=== PATIENT | male | born 2000 | race Hispanic/Latino ===

== ENCOUNTER 2022-10-20 16:11 | Emergency (ER) | payer BC, SELFPAY ==
[2022-10-20 16:15] VITALS: BP 154/81; PULSE 98; RESP 20; TEMP 37.4; O2SAT 100
--- NOTE | 2022-10-20 16:50 | ECG_ITS ---
Measurements Intervals [place] Rate: 77 P: 50 MO: 160 QRS: 56 QRSD: 97 T: 29 QT: 378 QTc: 429 Interpretive Statements SINUS RHYTHM NORMAL ECG NO PREVIOUS ECG AVAILABLE FOR COMPARISON Electronically Signed On 10-22-2022 9:08:34 CDT by Diego Vaughn M.D.
--- NOTE | 2022-10-20 16:57 | ED.DIZZY ---
HPI - Dizziness General Chief Complaint: Dizziness Stated Complaint: Dizziness Time Seen by Provider: 10/20/22 16:44 Source: patient and RN notes reviewed Mode of arrival: ambulatory Limitations: no limitations History of Present Illness HPI Narrative: Patient presents today complaining of dizziness, intermittent heart racing shortness of breath, and tingling in the bilateral hands. Symptoms began while he was working out at the gym this afternoon prior to arrival. States symptoms wax and wane and are not currently present. States he has had symptoms similar to this in the past. He did consume a preworkout drink prior to going to the gym. Denies chest pain, abdominal pain, vision changes. Patient states he believes he is having a panic attack, but has not had diagnosis of panic attack or anxiety in the past. Related Data Allergies Allergy/AdvReac Type Severity Reaction Status Date / Time No Known Allergies Allergy Verified 10/20/22 16:14 Review of Systems Review of Systems: CONSTITUTIONAL: Denies body aches, fever, chills, or sweats. EYES: Denies visual changes, redness, or discharge. ENT: Denies rhinorrhea, congestion, sore throat, or otalgia. CARDIOVASCULAR: Denies chest pain, palpitations, or edema.+ heart racing RESPIRATORY: Denies cough.+ shortness of breath GASTROINTESTINAL: Denies abdominal pain, nausea, vomiting, or diarrhea. GENITOURINARY: Denies dysuria or hematuria. SKIN: Denies rash, itching, or wounds. MUSCULOSKELETAL: Denies back pain, joint pain, or myalgia. NEUROLOGIC: Denies headache, numbness, or weakness.+ tingling in the hands, dizziness PSYCH: Denies depression or anxiety. PMFSH Comments At time of signature, I have reviewed and agree with nursing past medical, surgical, social and family history unless otherwise noted. Please see nursing chart for further information. There is no relevant family history pertinent to the presenting complaint Exam Narrative: GENERAL: Well-appearing, well-nourished, and in no acute distress. HEAD: Normocephalic, atraumatic. EYES: EOMI. PERRL. No redness or drainage. Conjunctivae normal. ENT: Mucous membranes pink and moist. Nares clear. No rhinorrhea. TMs normal bilaterally. Throat normal. Uvula midline. NECK: Normal AROM. Supple. No lymphadenopathy. CHEST: No respiratory distress. Clear to auscultation. HEART: Regular rate and rhythm. No murmur appreciated. Normal peripheral pulses. ABDOMEN: Soft, nontender, nondistended, normal active bowel sounds. EXTREMITIES: Normal range of motion. No edema. Hand special programs director equal and strong. Dorsiflexion and plantar flexion equal and strong against resistance. SKIN: Warm, dry, no rash. Capillary refill normal. Normal skin turgor. NEURO: No focal deficits. Alert and oriented x3. Gait steady. PSYCH: Normal affect. No signs of depression or anxiety. Course Course Level of Care: Express Care Visit Vital Signs Vital signs: Vital Signs Temperature 99.4 F 10/20/22 16:15 Pulse Rate 98 10/20/22 16:15 Respiratory Rate 20 10/20/22 16:15 Blood Pressure 154/81 H 10/20/22 16:15 Pulse Oximetry 100 10/20/22 16:15 Temperature 99.4 F 10/20/22 16:15 Pulse Rate 98 10/20/22 16:15 Respiratory Rate 20 10/20/22 16:15 Blood Pressure 154/81 H 10/20/22 16:15 Pulse Oximetry 100 10/20/22 16:15 Reviewed. Pt has been instructed to follow up with his PCP regarding his elevated blood pressure today. MDM - Dizziness MDM Narrative Medical decision making narrative: EKG normal. Patient is currently not experiencing any symptoms. Discussed EKG results with patient. Patient declines transfer to the ER at this time. Instructed to follow-up with PCP, or go to the ER if symptoms return. Anticipatory guidance given. Differential Diagnosis Differential diagnosis: Likely other (Panic attack, anxiety, arrhythmia, SVT) ECG Data EKG #1: Attestation: I personally reviewed and interpreted this E
== END 2022-10-20 17:40 | disposition home or self-care (01) ==
PROVIDERS: Emergency Provider Nurse Practitioner
DX: R42 Dizziness and giddiness (principal)
CPT/HCPCS: 93005; 99213; G0463